=== PATIENT | female | born 1985 | race Caucasian/White ===

== ENCOUNTER 2017-04-01 15:55 | Inpatient (IN) | payer OTHER ==
[~2017-04-01] VITALS: Ht 157.5 cm; Wt 93.8 kg
[2017-04-01 16:04] VITALS: BP 129/64
[2017-04-01] MEDS ORDERED: NEWBORN KIT ONE (16:42)
[2017-04-01] MEDS ORDERED: LIDOCAINE 1%, 20ML ONE (16:43)
[2017-04-01] MEDS ORDERED: MISOPROSTOL 200 MCG TABLET ONE (16:43)
[2017-04-01] MEDS ORDERED: OXYTOCIN 30U/ 0.9% NaCL 500ML 500 ML ONE (16:44)
[2017-04-01] MEDS ORDERED: OXYTOCIN 30U/ 0.9% NaCL 500ML 500 ML IV ONE (16:48)
[2017-04-01] MEDS ORDERED: D5%-LACTATED RINGERS 1,000 ML IV SCH (16:48)
[2017-04-01] MEDS ORDERED: ONDANSETRON 2MG/ML, 2ML IVPush PRN (17:00)
[2017-04-01] MEDS ORDERED: AMPICILLIN 1 GM in SODIUM CHLORIDE 0.9% 50 ML IVPB SCH (17:00)
[2017-04-01] MEDS ORDERED: SODIUM CITRATE/CITRIC ACID 30 ML UDC PO PRN (17:00)
[2017-04-01] MEDS ORDERED: TERBUTALINE 1 MG/ML, 1ML IVPush PRN (17:00)
[2017-04-01] MEDS ORDERED: FENTANYL PF 100 MCG/2ML IV PRN (17:00)
[2017-04-01] MEDS ORDERED: CEFAZOLIN PMX 2GM/50ML 50 ML IVPB ONE (17:00)
[2017-04-01] MEDS ORDERED: METOCLOPRAMIDE 5 MG/ML, 2ML IVPush PRN (17:00)
[2017-04-01] MEDS ORDERED: FENTANYL PF 100 MCG/2ML IVPush PRN (17:00)
[2017-04-01] MEDS ORDERED: AMPICILLIN 2 GM in SODIUM CHLORIDE 0.9% 100 ML IVPB ONE (17:05)
[2017-04-01] MEDS: LACTATED RINGERS 1,000 ML IV SCH (17:06)
[2017-04-01] MEDS ORDERED: BETAMETHASONE 6 MG/ML, 5ML IM ONE (18:42)
[2017-04-01] MEDS: BETAMETHASONE 6 MG/ML, 5ML IM SCH (18:44)
[2017-04-01 19:18] LABS: LARGE PLATELETS 1+
[2017-04-01] MEDS: AZITHROMYCIN 500 MG TABLET PO SCH (20:30)
[2017-04-01] MEDS: AMPICILLIN 1 GM in SODIUM CHLORIDE 0.9% 50 ML IVPB SCH (22:49)
[2017-04-01] MEDS ORDERED: CALCIUM CARBONATE 500 MG TAB.CHEW ONE (23:37)
[2017-04-01] MEDS: CALCIUM CARBONATE 500 MG TAB.CHEW PO PRN (23:44)
[2017-04-02] MEDS: AMPICILLIN 1 GM in SODIUM CHLORIDE 0.9% 50 ML IVPB SCH ×6 (02:35→22:00)
[2017-04-02] MEDS: LACTATED RINGERS 1,000 ML IV SCH ×2 (08:44→21:30)
[2017-04-02] MEDS ORDERED: AZITHROMYCIN 500 MG TABLET PO SCH (09:00)
[2017-04-02 11:12] VITALS: BP 125/72
[2017-04-02] MEDS: BETAMETHASONE 6 MG/ML, 5ML IM SCH (18:17)
[2017-04-02] MEDS ORDERED: CALCIUM CARBONATE 500 MG TAB.CHEW ONE (20:40)
[2017-04-02] MEDS ORDERED: ACETAMINOPHEN 325 MG TABLET ONE (20:40)
[2017-04-02] MEDS: CALCIUM CARBONATE 500 MG TAB.CHEW PO PRN (20:46)
[2017-04-02] MEDS: AZITHROMYCIN 500 MG TABLET PO SCH (21:00)
[2017-04-02] MEDS ORDERED: ACETAMINOPHEN 325 MG TABLET PO PRN (21:00)
[2017-04-03] MEDS: AMPICILLIN 1 GM in SODIUM CHLORIDE 0.9% 50 ML IVPB SCH ×5 (02:00→18:27)
[2017-04-03] MEDS ORDERED: CALCIUM CARBONATE 500 MG TAB.CHEW ONE ×2 (09:04→09:05)
[2017-04-03] MEDS: CALCIUM CARBONATE 500 MG TAB.CHEW PO PRN (09:07)
[2017-04-03] MEDS: LACTATED RINGERS 1,000 ML IV SCH (09:07)
[2017-04-03] MEDS ORDERED: OXYTOCIN 30U/ 0.9% NaCL 500ML 500 ML IV PRN (11:27)
[2017-04-03] MEDS ORDERED: TERBUTALINE 1 MG/ML, 1ML ONE (16:13)
[2017-04-03] MEDS ORDERED: FENTANYL PF 100 MCG/2ML ONE (19:43)
[2017-04-03] MEDS ORDERED: OXYcodone/APAP 5/325MG TABLET ONE ×2 (20:21)
[2017-04-03] MEDS ORDERED: IBUPROFEN 600 MG TABLET ONE (20:22)
[2017-04-03] MEDS ORDERED: OXYTOCIN 30U/ 0.9% NaCL 500ML 500 ML ONE (20:22)
[2017-04-03] MEDS: OXYTOCIN 30U/ 0.9% NaCL 500ML 500 ML IV SCH (20:27)
[2017-04-03] MEDS: OXYcodone/APAP 5/325MG TABLET PO PRN (20:29)
[2017-04-03] MEDS: IBUPROFEN 600 MG TABLET PO PRN (20:29)
[2017-04-03] MEDS ORDERED: ONDANSETRON 2MG/ML, 2ML IV PRN (20:30)
[2017-04-03] MEDS ORDERED: ACETAMINOPHEN 325 MG TABLET PO PRN (20:30)
[2017-04-03] MEDS ORDERED: METHYLERGONOVINE 0.2 MG/ML IM PRN (20:30)
[2017-04-03] MEDS ORDERED: MISOPROSTOL 200 MCG TABLET PR PRN (20:30)
[2017-04-03 22:15] VITALS: BP 110/63
[2017-04-04 01:05] VITALS: BP 108/56
[2017-04-04] MEDS: OXYcodone/APAP 5/325MG TABLET PO PRN ×5 (01:37→21:05)
[2017-04-04] MEDS ORDERED: DIPH,PERTUSS(ACELL),TET VAC/PF NC IM-VACC ONE ×2 (02:00→10:51)
[2017-04-04 05:30] VITALS: BP 117/69
[2017-04-04] MEDS: IBUPROFEN 600 MG TABLET PO PRN ×3 (06:09→21:05)
[2017-04-04] MEDS: OXYTOCIN 30U/ 0.9% NaCL 500ML 500 ML IV SCH ×2 (06:12→16:12)
[2017-04-04 08:00] VITALS: BP 106/64
[2017-04-04] MEDS: PRENATAL VIT/IRON/FA 1 EACH TABLET PO SCH (11:10)
[2017-04-04] MEDS: DOCUSATE 100 MG CAPSULE PO PRN ×2 (11:10→19:33)
[2017-04-04 11:53] VITALS: BP 113/68
[2017-04-04 16:23] VITALS: BP 116/75
[2017-04-04 19:25] VITALS: BP 122/66
[2017-04-05] MEDS: OXYcodone/APAP 5/325MG TABLET PO PRN ×5 (00:56→18:03)
[2017-04-05] MEDS: OXYTOCIN 30U/ 0.9% NaCL 500ML 500 ML IV SCH ×2 (02:12→12:12)
[2017-04-05] MEDS: IBUPROFEN 600 MG TABLET PO PRN ×3 (04:57→17:55)
[2017-04-05 07:30] VITALS: BP 113/58
[2017-04-05] MEDS: DOCUSATE 100 MG CAPSULE PO PRN ×2 (07:55→18:03)
[2017-04-05] MEDS: PRENATAL VIT/IRON/FA 1 EACH TABLET PO SCH (07:55)
[2017-04-05] MEDS ORDERED: OXYC-302 PO (18:14)
[2017-04-05] MEDS ORDERED: IBUP-1222 PO (18:15)
== END 2017-04-05 20:03 | disposition home or self-care (01) | DRG 775 ==
LOC: LDOP 15:55 → LDIP 16:47 → 2NW 04-03 21:58
PROVIDERS: ADMIT Obstetrics & Gynecology; ATTEND Obstetrics & Gynecology
PROC: 10E0XZZ Delivery of Products of Conception, External Approach (ICD-10-PCS; principal; 2017-04-03)
PROC: 3E033VJ Introduction of Other Hormone into Peripheral Vein, Percutaneous Approach (ICD-10-PCS; 2017-04-03)
PROC: 3E0E7GC Introduction of Other Therapeutic Substance into Products of Conception, Via Natural or Artificial Opening (ICD-10-PCS; 2017-04-03)
PROC: 4A1HXCZ Monitoring of Products of Conception, Cardiac Rate, External Approach (ICD-10-PCS; 2017-04-03)
PROC: 4A1H74Z Monitoring of Products of Conception, Cardiac Electrical Activity, Via Natural or Artificial Opening (ICD-10-PCS; 2017-04-03)
DX: O42.913 Preterm premature rupture of membranes, unspecified as to length of time between rupture and onset of labor, third trimester (principal); O60.14X0 Preterm labor third trimester with preterm delivery third trimester, not applicable or unspecified; E28.2 Polycystic ovarian syndrome; O99.284 Endocrine, nutritional and metabolic diseases complicating childbirth; O76 Abnormality in fetal heart rate and rhythm complicating labor and delivery; Z37.0 Single live birth; Z3A.34 34 weeks gestation of pregnancy; Z23 Encounter for immunization
CPT/HCPCS: 36415; 76815; 82803; 85025; 86850; 86900; 87081; 87147; 88307; 89060; 90715; J0290; J0702; J3010; J2590; J3105; J7120; Q0114